=== PATIENT | male | born 1955 | race Caucasian/White ===

== ENCOUNTER → 2016-08-08 | Outpatient (CLI) | payer OTHER ==
[~2016-08-08] MED LIST: GASTROGRAFIN SOLUTION 30ML (Q9963) As Ordered ONE
--- NOTE | 2016-08-09 05:12 | REP ---
Clinical: Follow up mesenteric mass. Technique: Axial noncontrast images from the lung bases to the pubic symphysis using oral contrast material with coronal and sagittal re-formations. Comparison: 03/21/2016, 11/30/2015. Findings: A rounded mid mesenteric soft tissue mass (image 76) currently measures 2 cm maximal diameter previously measuring between 2.9 cm and 2.7 cm maximal diameter. A smaller similar soft tissue mass in the right lower quadrant/pericecal region (image 99) measures approximately 1.9 cm maximal diameter and remains stable compared to prior examinations. No further, new mesenteric mass lesions or adenopathy is otherwise appreciated. Liver, spleen, pancreas, gallbladder, bilateral adrenal glands and kidneys are essentially normal/stable. Incidental note is made of a 3 mm nonobstructing right intrarenal calculus. The enteric system including stomach, small and large bowel is without obstruction or acute inflammatory process and a normal terminal ileum and appendix are identified in the right lower quadrant. Pelvis demonstrates normal bladder and age appropriate prostate/seminal vesicles. Small fat containing left inguinal hernia noted and unchanged. No pelvic fluid or ascites. No retroperitoneal adenopathy. No free air. Surrounding musculoskeletal structures without focal osseous abnormality. Lung bases clear. Impression: 1. Ovoid soft tissue mass in the mid mesentery is minimally decreased in size compared to prior examinations and may reflect chronic reactive lymph node. Similar smaller lesion in the right lower quadrant remains unchanged. 2. No new acute intra-abdominal or pelvic pathology is appreciated. 3. 3 mm nonobstructing right renal calculus. Signed by Te Kent MD 08/09/2016 05:04 A
== END ==
LOC: M RAD 11:00
PROVIDERS: ATTEND Surgery
DX: R19.00 Intra-abdominal and pelvic swelling, mass and lump, unspecified site (principal)

== ENCOUNTER → 2016-12-18 | Outpatient (CLI) | payer OTHER ==
[2016-12-18 09:45] LABS: ALBUMIN 3.7 GM/DL (3.2-5.2); ALBUMIN/GLOBULIN RATIO 0.79 (1.00-1.93); ALKALINE PHOSPHATASE 127 U/L (45-117); ALT/SGPT 43 U/L (12-78); ANION GAP 6 MEQ/L (8-16); AST/SGOT 22 U/L (15-37); BILIRUBIN,TOTAL 0.5 MG/DL (0.2-1.0); BLOOD UREA NITROGEN 16 MG/DL (7-18); CALCIUM LEVEL 9.3 MG/DL (8.8-10.2); CARBON DIOXIDE LEVEL 28 MEQ/L (21-32); CHLORIDE LEVEL 106 MEQ/L (98-107); CHOLESTEROL LEVEL 169 MG/DL (<200); GLOMERULAR FILTRATION RATE > 60.0 (>49); GLUCOSE, FASTING 94 MG/DL (80-110); POTASSIUM SERUM 5.1 MEQ/L (3.5-5.1); SODIUM LEVEL 140 MEQ/L (136-145); TOTAL PROTEIN 8.4 GM/DL (6.4-8.2); TRIGLYCERIDES LEVEL 139 MG/DL (<150)
[2016-12-18 09:50] LABS: MEAN CORPUSCULAR HGB CONC 34.8 g/dl (32.0-36.5); MEAN CORPUSCULAR VOLUME 97.6 fl (80.0-96.0); RED CELL DISTRIBUTION WIDTH 12.7 % (11.5-14.5); WHITE BLOOD COUNT 9.6 K/mm3 (4.0-10.0)
[2016-12-18 10:56] LABS: EOSINOPHILS 3 % (0-5)
== END ==
LOC: M WUC 08:17
PROVIDERS: ATTEND Family Medicine
DX: E78.2 Mixed hyperlipidemia (principal); D64.9 Anemia, unspecified; R73.01 Impaired fasting glucose

== ENCOUNTER 2017-03-19 09:15 | Emergency (ER) | payer OTHER ==
[~2017-03-19] VITALS: Ht 180.3 cm; Wt 101.6 kg
[2017-03-19] MEDS ORDERED: ROSU40TA (09:29)
[2017-03-19] MEDS ORDERED: ASPI1TAB15 (09:29)
[2017-03-19] MEDS ORDERED: ALLO100T (09:29)
[2017-03-19] MEDS ORDERED: LISI-538 (09:29)
[2017-03-19] MEDS ORDERED: NS 1,000 ML IV SCH (09:41)
[2017-03-19 10:47] LABS: BASO % 0.4 % (0.0-1.0); EOS # 0.2 K/mm3 (0.0-0.50); EOS % 3.2 % (0.0-3.0); LARGE UNSTAINED CELL # 0.2 K/mm3 (0.0-0.4); LARGE UNSTAINED CELL % 2.2 % (0.0-4.0); LYMPH % 24.1 % (24.0-44.0); MEAN CORPUSCULAR HEMOGLOBIN 32.8 pg (27.0-33.0); MEAN CORPUSCULAR HGB CONC 33.1 g/dl (32.0-36.5); MONO # 0.4 K/mm3 (0.0-0.8); MONO % 5.2 % (0.0-5.0); NEUTROPHILS # 4.9 K/mm3 (1.8-7.7); NEUTROPHILS % 64.9 % (36.0-66.0); PLATELET COUNT, AUTOMATED 242 k/mm3 (150-450); RED CELL DISTRIBUTION WIDTH 12.9 % (11.5-14.5); WHITE BLOOD COUNT 7.6 K/mm3 (4.0-10.0)
[2017-03-19 11:12] LABS: ALBUMIN 3.6 GM/DL (3.2-5.2); ALBUMIN/GLOBULIN RATIO 0.64 (1.00-1.93); ALKALINE PHOSPHATASE 120 U/L (45-117); ALT/SGPT 30 U/L (12-78); ANION GAP 6 MEQ/L (8-16); AST/SGOT 16 U/L (15-37); BILIRUBIN,DIRECT 0.1 MG/DL (0.0-0.2); BILIRUBIN,TOTAL 0.6 MG/DL (0.2-1.0); BLOOD UREA NITROGEN 15 MG/DL (7-18); CALCIUM LEVEL 9.3 MG/DL (8.8-10.2); CARBON DIOXIDE LEVEL 27 MEQ/L (21-32); CHLORIDE LEVEL 104 MEQ/L (98-107); CREATININE FOR GFR 1.03 MG/DL (0.70-1.30); GLOMERULAR FILTRATION RATE > 60.0 (>49); GLUCOSE, FASTING 102 MG/DL (80-110); POTASSIUM SERUM 4.5 MEQ/L (3.5-5.1); SODIUM LEVEL 137 MEQ/L (136-145); TOTAL PROTEIN 9.2 GM/DL (6.4-8.2)
[2017-03-19] MEDS ORDERED: ISOVUE-370 76% 100ML VIAL (Q9967) As Ordered ONE (11:33)
--- NOTE | 2017-03-19 11:57 | REP ---
Clinical: Acute left lower quadrant pain. Technique: Axial contrast enhanced images from the lung bases to the pubic symphysis using 100 ml Isovue 370 intravenous contrast material with coronal and sagittal re-formations. Comparison: 08/08/2016. Findings: Focal mural thickening and pericolonic stranding at the site of diverticulum in the mid sigmoid (images 105 - 116) is consistent with acute diverticulitis. No free fluid/drainable collection or abscess. No evidence for bowel obstruction. Fatty infiltration to the liver without focal hepatic lesion. Spleen, pancreas, gallbladder, bilateral adrenal glands and kidneys are normal incidental note is made of a 4 mm nonobstructing right renal calculus. There is no evidence for bowel obstruction and a normal terminal ileum and appendix are identified in the right lower quadrant. Pelvis demonstrates normal bladder and age appropriate prostate/seminal vesicles. Small fat containing left inguinal hernia noted. No ascites. No free air. No adenopathy. Vasculature appears normal. Musculoskeletal structures demonstrate age-related changes. Lung bases are clear. Impression: 1. Acute sigmoid diverticulitis without evidence for perforation, obstruction, free fluid or drainable collection/abscess. 2. 4 mm nonobstructing right renal calculus. Signed by Te Kent MD 03/19/2017 11:49 A
[2017-03-19] MEDS ORDERED: CIPR-249 PO (12:16)
[2017-03-19] MEDS ORDERED: FLAG500T PO (12:16)
[2017-03-19 12:53] VITALS: BP 120/84
== END 2017-03-19 12:54 | disposition home or self-care (01) ==
LOC: M ED 09:15
DX: K57.92 Diverticulitis of intestine, part unspecified, without perforation or abscess without bleeding (principal)
CPT/HCPCS: 36415; 74177; 80048; 80076; 83690; 85025; 99284; Q9967

== ENCOUNTER → 2017-12-18 | Outpatient (CLI) | payer OTHER ==
[2017-12-18 10:35] LABS: BASO % 0.3 % (0.0-1.0); EOS # 0.2 10^3/uL (0.0-0.50); EOS % 2.4 % (0.0-3.0); HEMATOCRIT 39.2 % (42.0-52.0); HEMOGLOBIN 12.9 g/dl (13.5-17.5); IMMATURE GRANULOCYTE % 0.9 % (0-3.0); LYMPH % 26.2 % (24.0-44.0); MEAN CORPUSCULAR HEMOGLOBIN 32.5 pg (27.0-33.0); MEAN CORPUSCULAR HGB CONC 32.9 g/dl (32.0-36.5); MEAN CORPUSCULAR VOLUME 98.7 fl (80.0-96.0); MONO # 0.7 10^3/uL (0.0-0.8); MONO % 8.9 % (0.0-5.0); NEUTROPHILS # 4.6 10^3/uL (1.8-7.7); NEUTROPHILS % 61.3 % (36.0-66.0); PLATELET COUNT, AUTOMATED 232 10^3/uL (150-450); RED BLOOD COUNT 3.97 10^6/uL (4.30-6.10); RED CELL DISTRIBUTION WIDTH 12.6 % (11.5-14.5); WHITE BLOOD COUNT 7.6 10^3/uL (4.0-10.0)
[2017-12-18 10:50] LABS: ALBUMIN 3.6 GM/DL (3.2-5.2); ALBUMIN/GLOBULIN RATIO 0.72 (1.00-1.93); ALKALINE PHOSPHATASE 138 U/L (45-117); ALT/SGPT 39 U/L (12-78); ANION GAP 6 MEQ/L (8-16); AST/SGOT 23 U/L (7-37); BILIRUBIN,TOTAL 0.7 MG/DL (0.2-1.0); BLOOD UREA NITROGEN 22 MG/DL (7-18); CALCIUM LEVEL 9.3 MG/DL (8.8-10.2); CARBON DIOXIDE LEVEL 27 MEQ/L (21-32); CHLORIDE LEVEL 106 MEQ/L (98-107); CHOLESTEROL LEVEL 151 MG/DL (<200); CHOLESTEROL RISK RATIO 4.314 (<5); CREATININE FOR GFR 1.16 MG/DL (0.70-1.30); GLOMERULAR FILTRATION RATE > 60.0 (>49); GLUCOSE, FASTING 94 MG/DL (70-100); HDL CHOLESTEROL 35 MG/DL (>40); NON-HDL-C 116 MG/DL; POTASSIUM SERUM 4.9 MEQ/L (3.5-5.1); SODIUM LEVEL 139 MEQ/L (136-145); TOTAL PROTEIN 8.6 GM/DL (6.4-8.2); TRIGLYCERIDES LEVEL 185 MG/DL (<150)
[2017-12-18 10:59] LABS: ESTIMATED AVERAGE GLUCOSE 120 MG/DL (60-110); HEMOGLOBIN A1c 5.8 %
== END ==
LOC: M WUC 08:41
DX: I10 Essential (primary) hypertension (principal); R73.01 Impaired fasting glucose

== ENCOUNTER → 2018-12-17 | Outpatient (CLI) | payer OTHER ==
[~2018-12-17] MED LIST changes: +ALLO100T; +ASPI1TAB15; +CIPR-249 PO; +FLAG500T PO; -GASTROGRAFIN SOLUTION 30ML (Q9963) As Ordered ONE; +LISI-538; +ROSU40TA3
[2018-12-17 09:15] LABS: BASO % 0.4 % (0.0-1.0); EOS # 0.3 10^3/uL (0.0-0.50); HEMATOCRIT 41.9 % (42.0-52.0); HEMOGLOBIN 13.6 g/dl (13.5-17.5); LYMPH # 2.1 10^3/uL (1.5-4.5); LYMPH % 24.7 % (24.0-44.0); MEAN CORPUSCULAR HEMOGLOBIN 32.5 pg (27.0-33.0); MEAN CORPUSCULAR HGB CONC 32.5 g/dl (32.0-36.5); MEAN CORPUSCULAR VOLUME 100.2 fl (80.0-96.0); MONO # 0.6 10^3/uL (0.0-0.8); MONO % 7.4 % (0.0-5.0); NEUTROPHILS # 5.4 10^3/uL (1.8-7.7); NEUTROPHILS % 64.3 % (36.0-66.0); PLATELET COUNT, AUTOMATED 230 10^3/uL (150-450); RED BLOOD COUNT 4.18 10^6/uL (4.30-6.10); WHITE BLOOD COUNT 8.4 10^3/uL (4.0-10.0)
[2018-12-17 09:38] LABS: ALBUMIN 3.8 GM/DL (3.2-5.2); ALT/SGPT 37 U/L (12-78); BILIRUBIN,TOTAL 0.6 MG/DL (0.2-1.0); BLOOD UREA NITROGEN 20 MG/DL (7-18); CALCIUM LEVEL 9.4 MG/DL (8.8-10.2); CARBON DIOXIDE LEVEL 28 MEQ/L (21-32); CHLORIDE LEVEL 106 MEQ/L (98-107); CHOLESTEROL LEVEL 163 MG/DL (<200); CHOLESTEROL RISK RATIO 4.405 (<5); CREATININE FOR GFR 1.13 MG/DL (0.70-1.30); GLOMERULAR FILTRATION RATE > 60.0 (>49); GLUCOSE, FASTING 106 MG/DL (70-100); HDL CHOLESTEROL 37 MG/DL (>40); LDL CHOLESTEROL 81 MG/DL (<100); NON-HDL-C 126 MG/DL; POTASSIUM SERUM 5.1 MEQ/L (3.5-5.1); SODIUM LEVEL 140 MEQ/L (136-145); TOTAL PROTEIN 8.5 GM/DL (6.4-8.2); TRIGLYCERIDES LEVEL 227 MG/DL (<150); URIC ACID 6.2 MG/DL (3.5-7.2)
== END ==
LOC: M WUC 08:14
PROVIDERS: ATTEND Family Medicine
DX: M10.9 Gout, unspecified (principal); I10 Essential (primary) hypertension

== ENCOUNTER → 2019-12-24 | Outpatient (CLI) | payer OTHER ==
[~2019-12-24] MED LIST changes: +ASPI-546; -ASPI1TAB15; -LISI-538; +LISI20TA33; -ROSU40TA3; +ROSU40TA4
[2019-12-24 09:49] LABS: BASO % 0.2 % (0.0-1.0); EOS # 0.2 10^3/uL (0.0-0.5); EOS % 2.7 % (0.0-3.0); HEMATOCRIT 41.6 % (42.0-52.0); HEMOGLOBIN 13.8 g/dl (13.5-17.5); LYMPH # 2.1 10^3/uL (1.5-5.0); LYMPH % 25.4 % (24.0-44.0); MEAN CORPUSCULAR HGB CONC 33.2 g/dl (32.0-36.5); MEAN CORPUSCULAR VOLUME 99.5 fl (80.0-96.0); MONO # 0.6 10^3/uL (0.0-0.8); MONO % 7.7 % (0.0-5.0); NEUTROPHILS # 5.1 10^3/uL (1.5-8.5); NEUTROPHILS % 63.8 % (36.0-66.0); PLATELET COUNT, AUTOMATED 231 10^3/uL (150-450); RED BLOOD COUNT 4.18 10^6/uL (4.30-6.10); WHITE BLOOD COUNT 8.1 10^3/uL (4.0-10.0)
[2019-12-24 10:13] LABS: ALBUMIN 3.5 GM/DL (3.2-5.2); ALT/SGPT 57 U/L (12-78); BILIRUBIN,TOTAL 0.6 MG/DL (0.2-1.0); BLOOD UREA NITROGEN 16 MG/DL (7-18); CALCIUM LEVEL 8.7 MG/DL (8.8-10.2); CARBON DIOXIDE LEVEL 26 MEQ/L (21-32); CHLORIDE LEVEL 105 MEQ/L (98-107); CHOLESTEROL LEVEL 146 MG/DL (<200); CHOLESTEROL RISK RATIO 4.709 (<5); CREATININE FOR GFR 1.03 MG/DL (0.70-1.30); GLOMERULAR FILTRATION RATE > 60.0 (>49); GLUCOSE, FASTING 98 MG/DL (70-100); HDL CHOLESTEROL 31 MG/DL (>40); LDL CHOLESTEROL 70 MG/DL (<100); NON-HDL-C 115 MG/DL; POTASSIUM SERUM 4.4 MEQ/L (3.5-5.1); SODIUM LEVEL 137 MEQ/L (136-145); TOTAL PROTEIN 8.3 GM/DL (6.4-8.2); TRIGLYCERIDES LEVEL 225 MG/DL (<150)
== END ==
LOC: M WUC 08:06
PROVIDERS: ATTEND Family Medicine
DX: I10 Essential (primary) hypertension (principal)

== ENCOUNTER → 2020-12-24 | Outpatient (CLI) | payer OTHER ==
[2020-12-24 12:36] LABS: BASO % 0.3 % (0.0-1.0); EOS # 0.1 10^3/uL (0.0-0.5); EOS % 1.6 % (0.0-3.0); HEMATOCRIT 43.2 % (42.0-52.0); LYMPH # 1.7 10^3/uL (1.5-5.0); LYMPH % 22.4 % (24.0-44.0); MEAN CORPUSCULAR HGB CONC 32.4 g/dl (32.0-36.5); MEAN CORPUSCULAR VOLUME 101.9 fl (80.0-96.0); MONO # 0.5 10^3/uL (0.0-0.8); MONO % 6.9 % (2.0-8.0); NEUTROPHILS % 68.4 % (36.0-66.0); PLATELET COUNT, AUTOMATED 229 10^3/uL (150-450); RED BLOOD COUNT 4.24 10^6/uL (4.30-6.10); WHITE BLOOD COUNT 7.4 10^3/uL (4.0-10.0)
[2020-12-24 12:57] LABS: ALBUMIN 3.7 GM/DL (3.2-5.2); ALT/SGPT 32 U/L (12-78); BILIRUBIN,TOTAL 0.6 MG/DL (0.2-1.0); BLOOD UREA NITROGEN 16 MG/DL (7-18); CALCIUM LEVEL 9.1 MG/DL (8.8-10.2); CARBON DIOXIDE LEVEL 27 MEQ/L (21-32); CHLORIDE LEVEL 107 MEQ/L (98-107); CHOLESTEROL LEVEL 144 MG/DL (<200); CHOLESTEROL RISK RATIO 4.363 (<5); GLOMERULAR FILTRATION RATE > 60.0 (>49); GLUCOSE, FASTING 103 MG/DL (70-100); HDL CHOLESTEROL 33 MG/DL (>40); LDL CHOLESTEROL 81 MG/DL (<100); NON-HDL-C 111 MG/DL; POTASSIUM SERUM 4.3 MEQ/L (3.5-5.1); SODIUM LEVEL 138 MEQ/L (136-145); TOTAL PROTEIN 8.6 GM/DL (6.4-8.2); TRIGLYCERIDES LEVEL 152 MG/DL (<150); URIC ACID 6.3 MG/DL (3.5-7.2)
== END ==
LOC: M WUC 08:35
PROVIDERS: ATTEND Family Medicine
DX: I10 Essential (primary) hypertension (principal); M10.9 Gout, unspecified

== ENCOUNTER 2021-03-16 08:40 | Day surgery (SDC) | payer OTHER ==
[~2021-03-16] VITALS: Ht 180.3 cm; Wt 98.4 kg
[~2021-03-16 08:40] MED LIST changes: +CITA20TA7; +NS 1,000 ML IV ONE
[2021-03-16] MEDS ORDERED: propofoL 500 MG/50 ML VIAL As Ordered ONE (09:31)
[2021-03-16] MEDS ORDERED: LIDOCAINE 2% 100MG/5ML SDV (FOR ANES.) As Ordered ONE (09:38)
[2021-03-16] MEDS ORDERED: PHENYLephrine 500MCG 5ML (100MCG/ML) SYRINGE As Ordered ONE (10:28)
[2021-03-16] MEDS ORDERED: ePHEDrine SULFATE 25 MG/5 ML(5MG/ML) SYRINGE As Ordered ONE (10:37)
--- NOTE | 2021-03-16 10:45 | ROOR ---
Patient Name: Tano Vazquez Procedure Date: 03/16/2021 10:06 AM Date of : 1955 Age: 65 Room: [facility] Gender: Male Note Status: Finalized Procedure: Colonoscopy Indications: Screening for colorectal malignant neoplasm, Last colonoscopy: 2008 Providers: Evan Mathru MD Referring MD: Karyna Cunningham MD Requesting Provider: Medicines: Monitored Anesthesia Care Complications: No immediate complications. Procedure: Pre-Anesthesia Assessment: - Prior to the procedure, a History and Physical was performed, and patient medications and allergies were reviewed. The patient is competent. The risks and benefits of the procedure and the sedation options and risks were discussed with the patient. All questions were answered and informed consent was obtained. Patient identification and proposed procedure were verified by the physician, the nurse and the chemical engineering technician in the procedure room. Mental Status Examination: alert and oriented. Airway Examination: normal oropharyngeal airway and neck mobility. Prophylactic Antibiotics: The patient does not require prophylactic antibiotics. Prior Anticoagulants: The patient has taken no previous anticoagulant or antiplatelet agents. ASA Grade Assessment: II - A patient with mild systemic disease. After reviewing the risks and benefits, the patient was deemed in satisfactory condition to undergo the procedure. The anesthesia plan was to use monitored anesthesia care (MAC). Immediately prior to administration of medications, the patient was re-assessed for adequacy to receive sedatives. The heart rate, respiratory rate, oxygen saturations, blood pressure, adequacy of pulmonary ventilation, and response to care were monitored throughout the procedure. The physical status of the patient was re-assessed after the procedure. The Colonoscope was introduced through the anus and advanced to the cecum, identified by appendiceal orifice and ileocecal valve. The colonoscopy was performed without difficulty. The patient tolerated the procedure well. The quality of the bowel preparation was excellent. Findings: The perianal and digital rectal examinations were normal. The colon (entire examined portion) appeared normal. Impression: - The entire examined colon is normal. - No specimens collected. Recommendation: - Discharge patient to home. - Resume previous diet. - Continue present medications. Procedure Code(s): --- Professional --- 43342, Colonoscopy, flexible; diagnostic, including collection of specimen(s) by brushing or washing, when performed (separate procedure) Diagnosis Code(s): --- Professional --- Z12.11, Encounter for screening for malignant neoplasm of colon CPT copyright 2019 [employer]. All rights reserved. The codes documented in this report are preliminary and upon gin inspector review may be revised to meet current compliance requirements. Evan Mathur MD Evan Mathur MD 03/16/2021 10:44:29 AM Electronically signed by Evan Mathur MD Number of Addenda: 0 Note Initiated On: 03/16/2021 10:06 AM Estimated Blood Loss: Estimated blood loss: none.
[2021-03-16 10:50] VITALS: BP 114/78
== END 2021-03-16 11:03 | disposition home or self-care (01) ==
LOC: M OPP 08:40
PROVIDERS: ATTEND Surgery
DX: Z12.11 Encounter for screening for malignant neoplasm of colon (principal); I10 Essential (primary) hypertension; E78.5 Hyperlipidemia, unspecified; M10.9 Gout, unspecified; F41.9 Anxiety disorder, unspecified; Z79.82 Long term (current) use of aspirin; Z79.899 Other long term (current) drug therapy
CPT/HCPCS: 45378; J2370

== ENCOUNTER → 2021-12-08 | Outpatient (CLI) | payer MEDICARE, OTHER ==
[~2021-12-08] MED LIST changes: -NS 1,000 ML IV ONE
[2021-12-08 16:16] LABS: BASO % 0.2 % (0.0-1.0); EOS # 0.2 10^3/uL (0.0-0.5); EOS % 1.8 % (0.0-3.0); HEMATOCRIT 40.8 % (42.0-52.0); HEMOGLOBIN 13.2 g/dl (13.5-17.5); LYMPH % 23.2 % (24.0-44.0); MEAN CORPUSCULAR HEMOGLOBIN 32.4 pg (27.0-33.0); MEAN CORPUSCULAR HGB CONC 32.4 g/dl (32.0-36.5); MONO # 0.7 10^3/uL (0.0-0.8); MONO % 8.4 % (2.0-8.0); NEUTROPHILS # 5.6 10^3/uL (1.5-8.5); NEUTROPHILS % 66.2 % (36.0-66.0); PLATELET COUNT, AUTOMATED 226 10^3/uL (150-450); RED BLOOD COUNT 4.08 10^6/uL (4.30-6.10); WHITE BLOOD COUNT 8.5 10^3/uL (4.0-10.0)
[2021-12-08 16:35] LABS: ALBUMIN 3.6 GM/DL (3.2-5.2); ALT/SGPT 26 U/L (12-78); BILIRUBIN,TOTAL 0.5 MG/DL (0.2-1.0); BLOOD UREA NITROGEN 13 MG/DL (7-18); CALCIUM LEVEL 9.9 MG/DL (8.8-10.2); CARBON DIOXIDE LEVEL 27 MEQ/L (21-32); CHLORIDE LEVEL 105 MEQ/L (98-107); CHOLESTEROL LEVEL 160 MG/DL (<200); CHOLESTEROL RISK RATIO 4.705 (<5); GLOMERULAR FILTRATION RATE > 60.0 (>49); GLUCOSE, FASTING 105 MG/DL (70-100); HDL CHOLESTEROL 34 MG/DL (>40); LDL CHOLESTEROL 67 MG/DL (<100); NON-HDL-C 126 MG/DL; POTASSIUM SERUM 3.7 MEQ/L (3.5-5.1); SODIUM LEVEL 139 MEQ/L (136-145); TOTAL PROTEIN 9.1 GM/DL (6.4-8.2); TRIGLYCERIDES LEVEL 293 MG/DL (<150); URIC ACID 6.3 MG/DL (3.5-7.2)
== END ==
LOC: M WUC 14:27
PROVIDERS: ATTEND Family Medicine
DX: I10 Essential (primary) hypertension (principal); M10.9 Gout, unspecified

== ENCOUNTER → 2024-04-30 | Outpatient (CLI) | payer MEDICARE, OTHER ==
[~2024-04-30] MED LIST changes: -ROSU40TA4; +ROSU40TA81
[2024-04-30 10:55] LABS: BASO % 0.4 % (0.0-1.0); EOS # 0.2 10^3/uL (0.0-0.5); EOS % 2.5 % (0.0-3.0); HEMATOCRIT 37.5 % (42.0-52.0); HEMOGLOBIN 12.2 g/dl (13.5-17.5); LYMPH # 1.9 10^3/uL (1.5-5.0); LYMPH % 25.8 % (24.0-44.0); MEAN CORPUSCULAR HEMOGLOBIN 33.8 pg (27.0-33.0); MEAN CORPUSCULAR HGB CONC 32.5 g/dl (32.0-36.5); MEAN CORPUSCULAR VOLUME 103.9 fl (80.0-96.0); MONO # 0.6 10^3/uL (0.0-0.8); MONO % 8.7 % (2.0-8.0); NEUTROPHILS # 4.5 10^3/uL (1.5-8.5); NEUTROPHILS % 62.3 % (36.0-66.0); PLATELET COUNT, AUTOMATED 207 10^3/uL (150-450); RED BLOOD COUNT 3.61 10^6/uL (4.30-6.10); WHITE BLOOD COUNT 7.3 10^3/uL (4.0-10.0)
[2024-04-30 11:29] LABS: URIC ACID 6.6 MG/DL (3.7-9.2)
[2024-04-30 11:32] LABS: ALBUMIN 3.4 G/DL (3.2-5.2); ALKALINE PHOSPHATASE 117 U/L (46-116); ALT/SGPT 22 U/L (7.0-40); AST/SGOT 19 U/L (<34); BILIRUBIN,TOTAL 0.5 MG/DL (0.3-1.2); BLOOD UREA NITROGEN 11 MG/DL (9-23); CALCIUM LEVEL 9.3 MG/DL (8.3-10.6); CARBON DIOXIDE LEVEL 27 MMOL/L (20-31); CHLORIDE LEVEL 110 MMOL/L (98-107); CHOLESTEROL LEVEL 136 MG/DL (<200); CHOLESTEROL RISK RATIO 4.08 (<5); CREATININE FOR GFR 0.98 MG/DL (0.70-1.30); GLOMERULAR FILTRATION RATE > 60.0 (>49); GLUCOSE, FASTING 87 MG/DL (74-106); HDL CHOLESTEROL 33.3 MG/DL (>40); LDL CHOLESTEROL 77.9 MG/DL (<100); NON-HDL-C 102.7 MG/DL; POTASSIUM SERUM 4.1 MMOL/L (3.5-5.1); SODIUM LEVEL 141 MMOL/L (136-145); TOTAL PROTEIN 7.7 G/DL (5.7-8.2); TRIGLYCERIDES LEVEL 124 MG/DL (<150)
== END ==
LOC: M WUC 08:19
PROVIDERS: ATTEND Family Medicine
DX: I10 Essential (primary) hypertension (principal); D64.9 Anemia, unspecified; M10.9 Gout, unspecified

== ENCOUNTER → 2024-09-09 | Outpatient (CLI) | payer MEDICARE, OTHER | LOC: M WUC 10:52 | PROVIDERS: ATTEND Family Medicine | DX: R35.0 Frequency of micturition (principal); Z12.5 Encounter for screening for malignant neoplasm of prostate | CPT/HCPCS: 36415; 87086; G0103 ==

== ENCOUNTER → 2024-10-17 | Outpatient (CLI) | payer MEDICARE, OTHER | LOC: M PLALAB 14:21 | PROVIDERS: ATTEND Physician Assistant | DX: R97.20 Elevated prostate specific antigen [PSA] (principal) ==

== ENCOUNTER → 2024-10-27 | Outpatient (CLI) | payer MEDICARE, OTHER ==
[2024-10-27 14:24] LABS: BASO % 0.4 % (0.0-1.0); EOS # 0.1 10^3/uL (0.0-0.5); EOS % 1.6 % (0.0-3.0); HEMATOCRIT 43.8 % (42.0-52.0); HEMOGLOBIN 14.1 g/dl (13.5-17.5); LYMPH % 24.8 % (24.0-44.0); MEAN CORPUSCULAR HEMOGLOBIN 32.2 pg (27.0-33.0); MEAN CORPUSCULAR HGB CONC 32.2 g/dl (32.0-36.5); MONO # 0.7 10^3/uL (0.0-0.8); MONO % 8.4 % (2.0-8.0); NEUTROPHILS # 5.3 10^3/uL (1.5-8.5); NEUTROPHILS % 64.6 % (36.0-66.0); PLATELET COUNT, AUTOMATED 192 10^3/uL (150-450); RED BLOOD COUNT 4.38 10^6/uL (4.30-6.10); WHITE BLOOD COUNT 8.2 10^3/uL (4.0-10.0)
[2024-10-27 14:45] LABS: PERCENT SATURATION 33.1 % (19.7-50.0)
== END ==
LOC: M WUC 08:46
PROVIDERS: ATTEND Family Medicine
DX: D64.9 Anemia, unspecified (principal)

== ENCOUNTER → 2024-11-21 | Outpatient (REF) | payer MEDICARE, OTHER | LOC: M SMT 13:09 | PROVIDERS: ATTEND Urology | DX: R97.20 Elevated prostate specific antigen [PSA] (principal) ==

== ENCOUNTER 2024-12-31 11:47 | Day surgery (SDC) | payer MEDICARE, OTHER ==
[~2024-12-31] VITALS: Ht 180.3 cm; Wt 98.4 kg
[2024-12-31] MEDS: LR 1,000 ML IV SCH (10:50)
[~2024-12-31 11:47] MED LIST changes: -ALLO100T; +ALLO100T PO; -ASPI-546; +ASPI-546 PO; -CITA20TA7; +CITA20TA7 PO; -LISI20TA33; +LISI20TA33 PO; -ROSU40TA81; +ROSU40TA81 PO
[2024-12-31] MEDS ORDERED: propofoL 200 MG/20 ML VIAL As Ordered ONE (12:14)
[2024-12-31] MEDS ORDERED: dexAMETHasone 4 MG/ML 1 ML VIAL As Ordered ONE (12:14)
[2024-12-31] MEDS ORDERED: LIDOCAINE 2% 100 MG/5 ML SDV (FOR ANES.) As Ordered ONE (12:14)
[2024-12-31] MEDS ORDERED: ONDANSETRON 4MG 2ML VIAL As Ordered ONE (12:14)
[2024-12-31] MEDS ORDERED: ROCURONIUM BROMIDE 50MG/5ML VIAL As Ordered ONE (12:14)
[2024-12-31] MEDS ORDERED: KETOROLAC 30 MG/ML 1 ML VIAL As Ordered ONE (12:15)
[2024-12-31] MEDS ORDERED: fentaNYL 250 MCG/5 ML INJECTION As Ordered ONE (12:15)
[2024-12-31] MEDS ORDERED: PERCOCET 5MG/325MG TAB PO PRN ×2 (13:05)
[2024-12-31] MEDS ORDERED: ACETAMINOPHEN 325 MG TAB PO PRN (13:05)
[2024-12-31] MEDS ORDERED: ONDANSETRON 4MG 2ML VIAL IV PRN ×2 (13:05→18:50)
[2024-12-31] MEDS: ceFAZolin SOD 2 GM IV ONCE IV ONE (13:40)
[2024-12-31] MEDS ORDERED: LACRILUBE (AKWA TEARS) OPHTH OINT 3.5 GM As Ordered ONE (13:52)
[2024-12-31] MEDS: HEPARIN SOD 5000 UNITS/ML 1 ML VIAL/SYRINGE SQ ONE (13:54)
[2024-12-31] MEDS ORDERED: dexmedeTOMIDine (4 MCG/ML) 200 MCG/50 ML BTL As Ordered ONE (14:48)
[2024-12-31] MEDS ORDERED: SUGAMMADEX SODIUM 500 MG/5 ML VIAL As Ordered ONE (14:56)
[2024-12-31] MEDS ORDERED: ACETAMINOPHEN 1000MG/100ML IV BAG As Ordered ONE (14:56)
[2024-12-31] MEDS ORDERED: HYDROmorphone HCL 2 MG/ML 1 ML VIAL As Ordered ONE (14:56)
[2024-12-31] MEDS ORDERED: PHENYLephrine 500MCG 5ML (100MCG/ML) SYRINGE As Ordered ONE (15:12)
[2024-12-31] MEDS ORDERED: ePHEDrine SULFATE 25 MG/5 ML SYRINGE As Ordered ONE (15:38)
[2024-12-31] MEDS: ceFAZolin SODIUM 2 GM VIAL As Ordered ONE (17:40)
[2024-12-31] MEDS: BUPIVACAINE HCL 0.25% As Ordered ONE (18:46)
[2024-12-31] MEDS: LIDOCAINE 1% SDV 30 ML VIAL As Ordered ONE (18:46)
[2024-12-31] MEDS ORDERED: fentaNYL 100 MCG/2 ML INJECTION IV PRN (18:50)
[2024-12-31] MEDS ORDERED: oxyCODONE 5MG TAB PO PRN (18:50)
[2024-12-31 20:00] VITALS: BP 132/77; TEMP 97.3; O2SAT 97
[2024-12-31 20:20] LABS: HEMATOCRIT 38.7 % (42.0-52.0); HEMOGLOBIN 12.6 g/dl (13.5-17.5); MEAN CORPUSCULAR HEMOGLOBIN 32.6 pg (27.0-33.0); MEAN CORPUSCULAR HGB CONC 32.6 g/dl (32.0-36.5); PLATELET COUNT, AUTOMATED 186 10^3/uL (150-450); RED BLOOD COUNT 3.87 10^6/uL (4.30-6.10); WHITE BLOOD COUNT 19.4 10^3/uL (4.0-10.0)
[2024-12-31 20:52] LABS: CALCIUM LEVEL 8.6 MG/DL (8.3-10.6); CREATININE FOR GFR 1.23 MG/DL (0.70-1.30); POTASSIUM SERUM 4.5 MMOL/L (3.5-5.1)
[2024-12-31] MEDS ORDERED: HOME MED LIST COMPLETE! XX SCH (20:55)
[2024-12-31] MEDS: DOCUSATE SODIUM 100 MG CAPSULE PO SCH (21:30)
[2024-12-31] MEDS: ceFAZolin SOD 1 GM in DEXTROSE 5% (D5W) ADV/MINI-BAG 50 ML IV SCH (21:30)
[2024-12-31] MEDS: HEPARIN SOD 5000 UNITS/ML 1 ML VIAL/SYRINGE SC SCH (21:30)
[2024-12-31] MEDS: oxyBUTYnin 5 MG TAB PO PRN (21:30)
[2024-12-31] MEDS: NS (Normal Saline) 0.9% 500 ML IV SCH (21:31)
[2025-01-01 04:11] VITALS: BP 100/66; TEMP 96.8; O2SAT 95
[2025-01-01 07:48] VITALS: BP 100/66
[2025-01-01] MEDS: lisinopriL 20 MG TAB PO SCH (07:48)
[2025-01-01 07:58] LABS: HEMATOCRIT 37.7 % (42.0-52.0); HEMOGLOBIN 12.1 g/dl (13.5-17.5); MEAN CORPUSCULAR HEMOGLOBIN 32.6 pg (27.0-33.0); MEAN CORPUSCULAR HGB CONC 32.1 g/dl (32.0-36.5); MEAN CORPUSCULAR VOLUME 101.6 fl (80.0-96.0); PLATELET COUNT, AUTOMATED 175 10^3/uL (150-450); RED BLOOD COUNT 3.71 10^6/uL (4.30-6.10); WHITE BLOOD COUNT 14.8 10^3/uL (4.0-10.0)
[2025-01-01 08:27] LABS: CALCIUM LEVEL 8.4 MG/DL (8.3-10.6)
[2025-01-01] MEDS: CITALOPRAM 20 MG PO SCH (08:38)
[2025-01-01] MEDS: ROSUVASTATIN 10 MG TAB PO SCH (08:39)
[2025-01-01] MEDS: allopurinoL 100 MG TAB PO SCH (08:39)
[2025-01-01] MEDS ORDERED: BACT800T5 PO (08:43)
[2025-01-01] MEDS ORDERED: COLA100C5 PO (08:43)
[2025-01-01] MEDS ORDERED: PERCOCET PO (08:43)
== END 2025-01-01 12:15 | disposition home or self-care (01) ==
LOC: M SDC 11:47 → M MS5PR 19:54 → M SDC 01-01 12:15
PROVIDERS: ATTEND Urology
DX: C61 Malignant neoplasm of prostate (principal); I10 Essential (primary) hypertension; D64.9 Anemia, unspecified; Z79.82 Long term (current) use of aspirin; Z79.899 Other long term (current) drug therapy; Z80.7 Family history of other malignant neoplasms of lymphoid, hematopoietic and related tissues; Z85.820 Personal history of malignant melanoma of skin; Z87.442 Personal history of urinary calculi
CPT/HCPCS: 36415; 38571; 55866; 80048; 85027; 88305; 88309; J0131; J0665; J0690; J1100; J1171; J2371; J2405; J3010; S2900

== ENCOUNTER → 2025-02-09 | Outpatient (REF) | payer MEDICARE, OTHER ==
[~2025-02-09] MED LIST changes: +BACT800T5 PO; +COLA100C5 PO; +PERCOCET PO
== END ==
LOC: M LABSMT 14:10
PROVIDERS: ATTEND Urology
DX: Z53.9 Procedure and treatment not carried out, unspecified reason (principal)

== ENCOUNTER → 2025-06-02 | Outpatient (CLI) | payer MEDICARE, OTHER ==
[2025-06-02 12:47] LABS: BASO # 0.0 10^3/uL (0.0-0.2); BASO % 0.5 % (0.0-1.0); EOS # 0.2 10^3/uL (0.0-0.5); EOS % 2.7 % (0.0-3.0); LYMPH # 2.4 10^3/uL (1.5-5.0); LYMPH % 27.9 % (24.0-44.0); MONO # 0.8 10^3/uL (0.0-0.8); MONO % 8.9 % (2.0-8.0); NEUTROPHILS # 5.2 10^3/uL (1.5-8.5); NEUTROPHILS % 59.7 % (36.0-66.0); PLATELET COUNT, AUTOMATED 206 10^3/uL (150-450)
[2025-06-02 12:53] LABS: ALT/SGPT 39.0 U/L (7.0-40); AST/SGOT 31.0 U/L (<34); CALCIUM LEVEL 9.6 MG/DL (8.3-10.6); CARBON DIOXIDE LEVEL 27.0 MMOL/L (20-31); CHLORIDE LEVEL 103.0 MMOL/L (98-107); CHOLESTEROL LEVEL 133.0 MG/DL (<200); CHOLESTEROL RISK RATIO 4.01 (<5); CREATININE FOR GFR 0.93 MG/DL (0.70-1.30); GLOMERULAR FILTRATION RATE 89.4 (>49); LDL CHOLESTEROL 45.9 MG/DL (<100); NON-HDL-C 99.9 MG/DL; POTASSIUM SERUM 4.3 MMOL/L (3.5-5.1); SODIUM LEVEL 140.0 MMOL/L (136-145); TRIGLYCERIDES LEVEL 270.0 MG/DL (<150)
== END ==
LOC: M WUC 08:43
PROVIDERS: ATTEND Family Medicine
DX: I10 Essential (primary) hypertension (principal)